=== PATIENT | female | born 1945 | race Caucasian/White ===

== ENCOUNTER 2017-06-16 17:42 | Emergency (ER) | payer MEDICARE ==
[~2017-06-16] VITALS: Ht 157.5 cm; Wt 76.2 kg
[~2017-06-16 17:42] MED LIST: AMOXICILLIN500 MG PO; CIPROFLOXACN500 MG PO; MULTI VIT PO; ZYRTEC10 M5 PO
[2017-06-16] MEDS ORDERED: FLEXERIL PO (20:50)
[2017-06-16] MEDS ORDERED: ULTRAM50 M1 PO (20:50)
[2017-06-16 21:06] VITALS: BP 140/88
== END 2017-06-16 21:00 | disposition home or self-care (01) ==
LOC: ED 17:42
DX: S23.3XXA Sprain of ligaments of thoracic spine, initial encounter (principal); M62.830 Muscle spasm of back

== ENCOUNTER 2018-09-17 10:12 | Emergency (ER) | payer MEDICARE ==
[~2018-09-17] VITALS: Ht 157.5 cm; Wt 74.1 kg
[~2018-09-17 10:12] MED LIST changes: +FLEXERIL PO; +ULTRAM50 M1 PO
[2018-09-17] MEDS ORDERED: CIPROFLOXACN500 MG PO (10:30)
[2018-09-17] MEDS ORDERED: PREMARIN0.625 MG/G TOP (10:31)
[2018-09-17 11:26] LABS: HEMATOCRIT 43.2 % (37.0-47.0); IMMATURE GRANULOCYTES 0.9 % (0.0-5.0); MEAN CELL VOLUME 93.9 fL CALC (80.0-100.0); MEAN CORPUSCULAR HGB 30.4 pG CALC (26.0-32.0); MEAN CORPUSCULAR HGB CONC 32.4 g/L CALC (32.0-36.0); NEUT# 3.79 thou/uL (2.00-7.15); RED BLOOD COUNT 4.6 mill/uL (4.20-5.60); RED CELL DISTRI WIDTH 12.9 % (11.5-15.5)
[2018-09-17 11:37] LABS: ANION GAP 15 (6-22 (CALC)); BUN 13 mg/dL (8-23); BUN/CREATININE RATIO 20 (12-20 (CALC)); CARBON DIOXIDE 25 mmol/l (22-30); CHLORIDE 104 mmol/l (95-108); CREATININE 0.6 mg/dL (0.5-1.0); GFR > 60 ML/MIN (>=60 (CALC)); GFR FOR AFR.AMER. > 60 ML/MIN (>=60 (CALC)); POTASSIUM 4.1 mmol/l (3.5-5.1); SODIUM 140 mmol/l (137-146)
[2018-09-17] MEDS ORDERED: ZPAK PO (12:08)
[2018-09-17] MEDS ORDERED: PREDNISONE50 MG PO (12:08)
[2018-09-17 12:32] VITALS: BP 145/64
== END 2018-09-17 12:32 | disposition home or self-care (01) ==
LOC: ED 10:12
PROVIDERS: Family Medicine
DX: J40 Bronchitis, not specified as acute or chronic (principal); R07.89 Other chest pain; R05 Cough

== ENCOUNTER 2022-06-21 16:57 | Emergency (ER) | payer MEDICARE ==
[~2022-06-21] VITALS: Ht 157.5 cm; Wt 77.0 kg
[2022-06-21] VITALS (25 sets, daily range): BP systolic 148–228; BP diastolic 64–138
[~2022-06-21 16:57] MED LIST changes: +PREDNISONE50 MG PO; +PREMARIN0.625 MG/G TOP; +ZPAK PO
[2022-06-21 17:41] LABS: HEMATOCRIT 41.3 % (37.0-47.0); HEMOGLOBIN 13.9 g/dl (12.0-16.0); IMMATURE GRANULOCYTES 0.4 % (0.0-5.0); MEAN CELL VOLUME 94.9 fL CALC (80.0-100.0); MEAN CORPUSCULAR HGB CONC 33.7 g/dL CAL (32.0-36.0); NEUT# 9.48 thou/uL (2.00-7.15); RED BLOOD COUNT 4.35 mill/uL (4.20-5.60); RED CELL DISTRI WIDTH 12.7 % (11.5-15.5)
[2022-06-21 17:47] LABS: ALBUMIN 4.5 g/dL (3.2-5.0); ALKALINE PHOSPHATASE 129 u/l (38-126); ANION GAP 12 (6-22 (CALC)); BILIRUBIN, TOTAL 0.5 mg/dL (0.0-1.4); BUN 17 mg/dL (8-23); BUN/CREATININE RATIO 20 (12-20 (CALC)); CARBON DIOXIDE 25 mmol/l (22-30); CHLORIDE 105 mmol/l (95-108); CREATININE 0.9 mg/dL (0.5-1.0); GFR FOR AFR.AMER. > 60 ML/MIN (>=60 (CALC)); GFR OTHER RACES > 60 ML/MIN (>=60 (CALC)); POTASSIUM 3.6 mmol/l (3.5-5.1); SGOT/AST 27 u/l (9-36); SODIUM 139 mmol/l (137-146); TOTAL PROTEIN 7.1 g/dL (6.3-8.2)
[2022-06-21] MEDS ORDERED: LORTAB5 PO (22:53)
== END 2022-06-21 23:35 | disposition home or self-care (01) ==
LOC: ED 16:57
PROVIDERS: Nurse Practitioner
PROC: 0RSKXZZ Reposition Left Shoulder Joint, External Approach (ICD-10-PCS; principal; 2022-06-21)
DX: S42.252A Displaced fracture of greater tuberosity of left humerus, initial encounter for closed fracture (principal); W01.0XXA Fall on same level from slipping, tripping and stumbling without subsequent striking against object, initial encounter; Z20.822 Contact with and (suspected) exposure to COVID-19